=== PATIENT | male | born 1995 | race Caucasian/White ===

== ENCOUNTER 2022-08-14 16:27 | Emergency (ER) | payer BC, SELFPAY ==
[2022-08-14 16:28] VITALS: BP 123/85; PULSE 88; RESP 15; TEMP 36.4; O2SAT 96; BMI 31.3
== END 2022-08-14 17:40 | disposition left against medical advice (07) ==
LOC: ED 17:54
DX: Z53.21 Procedure and treatment not carried out due to patient leaving prior to being seen by health care provider (principal)

== ENCOUNTER 2022-08-26 20:36 | Emergency (ER) | payer MEDICAID, SELFPAY ==
[2022-08-26 20:37] VITALS: BP 146/101; PULSE 95; RESP 18; TEMP 35.7; O2SAT 96; BMI 23.6
--- NOTE | 2022-08-26 22:22 | EDS_ITS ---
HPI History of Present Illness Chief Complaint: Dental Informant: patient Onset/Context/Timing Onset: Days Context: Gradual Onset Timing: Continuous Current Severity: Moderate Maximum Severity: Moderate Relieved by: NSAIDs Associated Symptoms Assocated Symptom - Dental: cold sensitivity and hot sensitivity; Negative for fever Narrative Narrative: 26-year-old male history of bipolar. Complaining of right lower jaw dental pain for days. He has a cracked tooth is mild swelling of the gums. No fever. No trouble swallowing. He has been taking ibuprofen with limited relief. Prior similar symptoms: Yes Recent Illness/Hospitalization: No PFSH PFSH Medical History Smoker Home Medications penicillin V potassium 500 mg tablet 500 mg PO 4X/DAY #40 tabs 08/26/22 [Rx Last Taken Unknown] Allergy/AdvReac Type Severity Reaction Status Date / Time No Known Allergies Allergy Verified 08/14/22 16:28 Social History Smoking Status: Current every day smoker tobacco type: cigarettes ROS ROS ED ROS Narrative Dental pain. Otherwise no illness. Review of Systems ROS Unobtainable: Denies due to encephalopathy Constitutional Constitutional ED: Denies chills or fever(s) Eyes Eyes: Denies blurry vision ENT ENT ED: Denies ear pain Cardiovascular Cardiovascular: Denies chest pain Respiratory/Chest Respiratory/Chest: Denies cough Gastrointestinal Gastrointestinal: Denies abdominal pain Genitourinary Genitourinary ED: Denies dysuria Musculoskeletal Musculoskeletal: Denies arthralgias Integumentary Denies abscess Neurologic Neurologic: Denies headache(s) Psychiatric Psychiatric: Denies anxiety Endocrine Endocrinology: Denies cold intolerance Hematologic/Lymphatic Hematologic/Lymphatic: Denies easy bleeding Allergic/Immunologic Allergic/Immunologic ED: Reports mouth swelling; Denies tongue swelling or urticaria EXAM Physical Exam Narrative Exam Narrative: 26-year-old male seen in triage. Vital signs stable afebrile. H EENT exam very poor dentition. Multiple missing, cracked and decaying teeth. Right lower jaw molar cracked. Part of the tooth is missing. Surrounding gingivitis. No obvious abscess. Mild gum swelling. Able to open and close his mouth. No facial swelling. Posterior pharynx normal. Neck nontender no lymphadenopathy. Lungs coarse breath sounds with a few scattered wheezes. Patient smokes. Heart regular rhythm no murmur. Abdomen soft nontender. Otherwise exam unremarkable. Const Vital Signs: 08/26/22 20:37 Temperature 96.2 F L Temperature Source Temporal Pulse Rate 95 Respiratory Rate 18 Blood Pressure 146/101 H Blood Pressure Mean 116 Pulse Ox 96 Oxygen Delivery Method Room Air Positive well nourished and well developed; Negative for obese, cachectic, contractures or unkempt General Appearance ED: well developed and NAD; Negative for unkempt, cachectic, contractures or pallor Nutritional Appearance: Negative for cachectic or obese HEENT Denies other Negative for trauma, tenderness or other Face and Sinus: sinuses nontender Mouth ED: Yes lips normal, Yes tongue normal, Yes salivary gland normal and Yes oral and palatal mucosa abnormal Mouth: lips normal, tongue normal, salivary gland normal and oral and palatal mucosa abnormal Teeth and Gingiva: abnormal tooth and associated gingiva Throat: posterior oropharynx normal Eyes PERRL and EOMs intact bilaterally General Eye ED: Negative for pale conjunctiva or scleral icterus Neck no lymphadenopathy, supple and no JVD Lymph Lymphatic: no lymphadenopathy noted; Negative for lymphadenopathy Chest Wall inspection of chest normal and palpation of chest normal Resp normal respiratory effort, no retractions and clear to auscultation bilaterally Cardio regular rate, regular rhythm, S1 normal heart sound, S2 normal heart sound and no murmurs GI normal to inspection, nondistended, normoactive bowel sounds, non-tender, non- distended and no masses Inspection: Negative for other Palpation: soft Extremity normal to inspection General Extremety ED: Negative for edema General Extremity: Negative for edema Neuro oriented x3, moves all extremities and no focal motor deficits Sensorium / Orientation: alert, oriented to person, oriented to place and oriented to time Motor Exam: strength 5/5 throughout Psych mental status grossly normal Appearance: Negative for unkempt Attitude: No agitated Mood & Affect: anxious; Negative for depressed or tearful Skin no rashes or lesions noted and no wounds General Skin Exam: Negative for pallor MDM MDM MDM Narrative Medical decision making narrative: 26-year-old male complaining of right lower jaw dental pain. He has a cracked tooth with gingivitis. No drainable abscess. Tenderness to palpation. No trouble swallowing or breathing. No facial swelling. Will be placed on Pen-Vee K 500 4 times daily 10 days. Referred to a dentist. Motrin and Tylenol for pain. Given a dental block tonight. Procedures Other Procedures Procedure(s): Right lower jaw molar dental block. Discharge Plan Triage Chief Complaint: Dental ED Provider: Bismark Parra Dx/Rx/DC Orders Clinical Impression: Pain due to dental caries, Abscess, dental, Dental cavities Instructions: ED Dental Pain, ED Dental Cavity Prescriptions: New penicillin V potassium 500 mg tablet 500 mg PO 4X/DAY Qty: 40 0RF Primary Care Provider: Jj Chu Referrals: Sherley Erazo [Non-Staff] - As soon as possible [facility] Doctor,Out of [Non-Staff] - Activity Restrictions/Additional Instructions: Ice to decrease pain and swelling. Motrin for pain and swelling. Alternate with Tylenol for pain. The antibiotic penicillin 4 times a day till gone. Call and follow-up with a dentist as soon as possible. Disposition Disposition: Home, Self Care
[2022-08-26] MEDS: Bupivacaine 0.5%/Epi 1.8 ML Syringe INFILT (22:27)
[2022-08-26] MEDS: Penicillin Vk 250 MG Tablet 500 MG PO (22:27)
[2022-08-26 22:38] VITALS: BP 140/92; PULSE 90; RESP 15; O2SAT 98
== END 2022-08-26 22:39 | disposition home or self-care (01) ==
PROVIDERS: Emergency Provider Emergency Medicine; PCP Internal Medicine; Visit Provider Emergency Medicine
DX: K02.9 Dental caries, unspecified (principal); K05.10 Chronic gingivitis, plaque induced; F17.210 Nicotine dependence, cigarettes, uncomplicated; K04.7 Periapical abscess without sinus
CPT/HCPCS: 64999; 99282

== ENCOUNTER 2022-10-08 05:04 | Emergency (ER) | payer MEDICAID, SELFPAY ==
[2022-10-08 05:05] VITALS: BP 175/102; PULSE 104; RESP 20; TEMP 36.1; O2SAT 98; BMI 27.9
--- NOTE | 2022-10-08 05:24 | EX.ED.DYSGE1 ---
HPI History of Present Illness Chief Complaint: Abscess Informant: patient Narrative Narrative: Recurrent worsening right lower dental pain with jaw swelling. Seen in August for similar placed on penicillin with improvement. However follow-up with dentist yesterday due to recurring symptoms, he states started on amoxicillin and has upcoming plan extraction. He states he received a dental block and it was too painful did not want 1. He has been on 2 days amoxicillin using Tylenol and ibuprofen last dose ibuprofen prior to arrival. Denies fevers. Hot and cold sensitivities. Prior similar symptoms: Yes PFSH PFSH Medical History Kidney stones Smoker Home Medications hydrocodone-acetaminophen 5-325mg 5mg-325mg 1 tab PO Q6H PRN pain 3 days #12 tabs 10/08/22 [Rx Last Taken Unknown] penicillin V potassium 500 mg tablet 500 mg PO 4X/DAY #40 tabs 10/08/22 [Rx Last Taken Unknown] Allergy/AdvReac Type Severity Reaction Status Date / Time No Known Allergies Allergy Verified 08/14/22 16:28 Surgical History History of renal stent Social History Smoking Status: Current every day smoker tobacco type: cigarettes ROS ROS ED Constitutional Constitutional ED: Denies chills, fever(s) or sweats Eyes Eyes: Denies change in vision ENT ENT ED: Reports other Details: Right lower dental pain ; Denies dysphagia or sore throat Cardiovascular Cardiovascular: Denies chest pain, leg edema, palpitations or racing heartbeat Respiratory/Chest Respiratory/Chest: Denies cough, dyspnea or dyspnea on exertion Gastrointestinal Gastrointestinal: Denies abdominal pain, diarrhea, nausea or vomiting Genitourinary Genitourinary ED: Denies dysuria, hematuria or urinary frequency Musculoskeletal Musculoskeletal: Denies back pain, extremity pain or neck pain Integumentary Denies rash or wounds Neurologic Neurologic: Denies headache(s), paresthesias or weakness EXAM Physical Exam Const Vital Signs: 10/08/22 05:05 Temperature 97 F L Temperature Source Temporal Pulse Rate 104 H Respiratory Rate 20 H Blood Pressure 175/102 H Blood Pressure Mean 126 Pulse Ox 98 Oxygen Delivery Method Room Air Positive well nourished and well developed General Appearance ED: well developed and NAD HEENT Reports moist mucous membranes HEENT Narrative: There is cracked and decayed tooth number#30 with tenderness to percussion. There is no focal gum swelling no sublingual edema. No stridor. Slight swelling noted on right mandibular angle. normocephalic and atraumatic Eyes PERRL, EOMs intact bilaterally and conjunctivae normal General Eye ED: Yes normal appearance of both eyes Neck no lymphadenopathy and supple General: Negative for tenderness Chest Wall Chest: Negative for tenderness Resp normal respiratory effort and normal air movement Effort and Inspection: symmetric chest movement; Negative for respiratory distress Cardio regular rate, regular rhythm and no murmurs Peripheral Pulses: pulses 2+ throughout GI normal to inspection, nondistended, normoactive bowel sounds and non-tender Palpation: Negative for guarding or rebound tenderness present Back/Spine no CVA tenderness and no thoracic nor lumbar tenderness Extremity normal to inspection General Extremety ED: Negative for edema or tenderness General Extremity: Negative for edema Neuro oriented x3 and no sensory deficits noted Sensorium / Orientation: awake and alert Skin no rashes or lesions noted and no wounds MDM MDM MDM Narrative Medical decision making narrative: Patient nontoxic dental carry with tenderness tooth #30. There is jaw swelling. There is no drainable abscess on exam. He would like to switch over to penicillin from his amoxicillin due to improvement a couple months ago. He will continue Tylenol and ibuprofen. [facility] report was negative. Declined dental injection. Short course for [place] to use as needed. Follow-up with dentist for definitive treatment. All questions were answered. Discharge Plan Triage Chief Complaint: Abscess ED Provider: Joseph Gaona Dx/Rx/DC Orders Clinical Impression: Dental caries, Dentalgia Instructions: ED Dental Pain, ED Dental Cavity Prescriptions: New hydrocodone-acetaminophen 5-325 mg tablet 1 tab PO Q6H PRN (Reason: pain) 3 Days Qty: 12 0RF penicillin V potassium 500 mg tablet 500 mg PO 4X/DAY Qty: 40 0RF Discontinued penicillin V potassium 500 mg tablet 500 mg PO 4X/DAY Qty: 40 0RF Primary Care Provider: Jj Chu Referrals: Jj Chu MD [Primary Care Provider] - Activity Restrictions/Additional Instructions: Stop amoxicillin. Take penicillin as prescribed. Continue Tylenol and ibuprofen. Hydrocodone as needed. Follow-up with your dentist for definitive treatment. Disposition Disposition: Home, Self Care Discharge Date/Time: 10/08/22 05:54
== END 2022-10-08 05:54 | disposition home or self-care (01) ==
LOC: ED 05:29
PROVIDERS: Emergency Provider Emergency Medicine; PCP Internal Medicine; Visit Provider Emergency Medicine
DX: K02.9 Dental caries, unspecified (principal); K08.89 Other specified disorders of teeth and supporting structures; F17.210 Nicotine dependence, cigarettes, uncomplicated
CPT/HCPCS: 99282

== ENCOUNTER 2022-11-18 21:06 | Emergency (ER) | payer MEDICAID, SELFPAY ==
[2022-11-18 21:07] VITALS: BP 121/82; PULSE 79; RESP 15; TEMP 36.2; O2SAT 98; BMI 29.7
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
[2022-11-18] MEDS: Naproxen 500 MG Tablet PO (21:40)
--- NOTE | 2022-11-18 21:43 | RAD_ITS ---
INDICATION: Injury/low back pain EXAMINATION/TECHNIQUE: X-RAY - XR Spine Lumbar 2 or 3 Views COMPARISON: None. FINDINGS: VERTEBRAE: Preserved vertebral body height. No fracture. No spondylolisthesis. Preservation of the normal lumbar lordosis. No significant facet arthropathy. DISCS: Disc spaces are maintained. INCLUDED ABDOMEN: Included bowel gas pattern is non-obstructive. RAD/Lumbar Spine 2 or 3 Views IMPRESSION: No evidence of lumbar spinal fracture or spondylolisthesis. Electronically Signed: Robert May MD at 22:03 EST ,
== END 2022-11-18 22:04 | disposition home or self-care (01) ==
LOC: ED 21:39
PROVIDERS: Emergency Provider Emergency Medicine; PCP Internal Medicine; Visit Provider Emergency Medicine
DX: M54.50 Low back pain, unspecified (principal); F17.210 Nicotine dependence, cigarettes, uncomplicated
CPT/HCPCS: 72100; 99283

== ENCOUNTER 2023-01-04 17:32 | Emergency (ER) | payer MEDICAID, SELFPAY ==
[2023-01-04 17:33] VITALS: BP 129/65; PULSE 82; RESP 14; TEMP 36.6; O2SAT 98; BMI 25.1
--- NOTE | 2023-01-04 17:55 | EX.ED.DYSGE1 ---
HPI History of Present Illness Chief Complaint: Confusion Informant: patient Onset/Context/Timing Onset: Days Narrative Narrative: Patient present secondary to confusion and just not feeling right. He has a history of bipolar disorder and anxiety. He states he has been under a lot of stress recently. He states for the past week he feels like he is living the same day over and over. He states he does not have any emotions. His soon-to-be ex- has temporary custody of his daughter and states this is causing increased stress for him. He reports recently being on Ativan as well as another psych medicine that did not agree with him. He denies suicidal homicidal ideation. PFSH PFSH Medical History Anxiety Bipolar disorder Kidney stones Smoker Home Medications naproxen 500 mg tablet 500 mg PO BID #14 tabs 11/18/22 [Rx Last Taken Unknown] hydroxyzine HCl 25 mg tablet 25 mg PO TID PRN anxiety #14 tabs 01/04/23 [Rx Last Taken Unknown] Allergy/AdvReac Type Severity Reaction Status Date / Time No Known Allergies Allergy Verified 01/04/23 17:33 Surgical History History of renal stent Social History household members: significant other and children Smoking Status: Current every day smoker tobacco type: cigarettes substance use type: does not use ROS ROS ED Constitutional Constitutional ED: Denies chills or fever(s) Eyes Eyes: Denies change in vision or discharge from eye(s) ENT ENT ED: Reports sore throat and other Details: Recently diagnosed with strep pharyngitis and on antibiotics. ; Denies discharge from eye(s) or rhinorrhea Cardiovascular Cardiovascular: Denies chest pain or palpitations Respiratory/Chest Respiratory/Chest: Denies cough or dyspnea Gastrointestinal Gastrointestinal: Denies abdominal pain, nausea or vomiting Genitourinary Genitourinary ED: Denies dysuria Musculoskeletal Musculoskeletal: Denies back pain or extremity pain Integumentary Denies Abrasions or rash Neurologic Neurologic: Denies headache(s) or weakness Psychiatric Psychiatric: Reports anxiety and depression; Denies suicidal ideation or suicidal thoughts Allergic/Immunologic Allergic/Immunologic ED: Denies lip swelling or urticaria EXAM Physical Exam Const Vital Signs: 01/04/23 17:33 01/04/23 18:43 Temperature 98 F 97.8 F Temperature Source Temporal Pulse Rate 82 97 Respiratory Rate 14 16 Blood Pressure 129/65 H Blood Pressure Mean 86 Pulse Ox 98 100 Oxygen Delivery Method Room Air Positive well nourished and well developed General Appearance ED: well developed HEENT Reports normocephalic and head/scalp atraumatic Eyes PERRL and EOMs intact bilaterally Neck supple Chest Wall inspection of chest normal and palpation of chest normal Resp normal respiratory effort and clear to auscultation bilaterally Cardio regular rate and regular rhythm GI normal to inspection, nondistended, normoactive bowel sounds Palpation: soft Back/Spine no CVA tenderness Extremity normal to inspection Neuro oriented x3 and no sensory deficits noted Sensorium / Orientation: alert Motor Exam: strength 5/5 throughout Psych Psych Narrative: Anxious with pressured speech. Denies suicidal homicidal ideation. Skin no rashes or lesions noted MDM MDM MDM Narrative Medical decision making narrative: Blood work is obtained for psychiatric clearance. Lab Data Labs: Laboratory Results - last 24 hr 01/04/23 01/04/23 01/04/23 18:05 18:05 18:05 WBC 6.8 RBC 5.32 Hgb 16.2 Hct 47.9 MCV 90.0 MCH 30.5 MCHC 33.8 RDW Std Deviation 43.7 RDW Coeff of Parvin 13.2 Plt Count 207 MPV 10.0 Immature Gran % (Auto) 0.100 Neut % (Auto) 46.4 L Lymph % (Auto) 41.3 H [place] % (Auto) 6.9 Eos % (Auto) 4.7 Baso % (Auto) 0.6 Absolute Neuts (auto) 3.2 Absolute Lymphs (auto) 2.81 Nucleated RBC % 0 Sodium Potassium Chloride Carbon Dioxide Anion Gap BUN Creatinine Estim Creat Clear Calc Est GFR (MDRD) Af Amer Est GFR (MDRD) Non-Af BUN/Creatinine Ratio Glucose Calcium Total Bilirubin AST ALT Alkaline Phosphatase Total Protein Albumin Globulin Albumin/Globulin Ratio Urine Opiates Screen NEGATIVE Urine Methadone Screen NEGATIVE Ur Barbiturates Screen NEGATIVE Ur Phencyclidine Scrn NEGATIVE Ur Amphetamines Screen POSITIVE H MDMA (Ecstasy) Screen POSITIVE H U Benzodiazepines Scrn NEGATIVE Urine Cocaine Screen NEGATIVE U Cannabinoids Screen POSITIVE H Ur Drug Screen Comment Ethyl Alcohol < 3.0 01/04/23 18:05 WBC RBC Hgb Hct MCV MCH MCHC RDW Std Deviation RDW Coeff of Parvin Plt Count MPV Immature Gran % (Auto) Neut % (Auto) Lymph % (Auto) [place] % (Auto) Eos % (Auto) Baso % (Auto) Absolute Neuts (auto) Absolute Lymphs (auto) Nucleated RBC % Sodium 139 Potassium 3.7 Chloride 103 Carbon Dioxide 29.0 Anion Gap 7 BUN 12 Creatinine 0.82 Estim Creat Clear Calc 144.12 Est GFR (MDRD) Af Amer 145 Est GFR (MDRD) Non-Af 120 BUN/Creatinine Ratio 14.7 Glucose 97 Calcium 9.2 Total Bilirubin 0.50 AST 20 ALT 22 Alkaline Phosphatase 53 Total Protein 7.4 Albumin 3.8 Globulin 3.6 Albumin/Globulin Ratio 1.1 Urine Opiates Screen Urine Methadone Screen Ur Barbiturates Screen Ur Phencyclidine Scrn Ur Amphetamines Screen MDMA (Ecstasy) Screen U Benzodiazepines Scrn Urine Cocaine Screen U Cannabinoids Screen Ur Drug Screen Comment Ethyl Alcohol Treatment and Re-Evaluation :: CBC and chemistry studies are unremarkable. LFTs normal. Alcohol is less than 3. Tox screen is positive for cannabinoids, amphetamines, MDMA. He states that he is not taking any medications currently. He does admit to using marijuana but states he buys it from a dispensary in [place] and does not feel that it has been laced with anything. On repeat evaluation patient states that he just wants to go home and sleep. He did ask for something for anxiety but states Ativan does not help him. He again denies suicidal homicidal ideation. I will give him the phone number for the counseling center and he knows that they are available 24/ if he needs to speak with someone. He knows that he can come back here for evaluation at any time. I will give him a dose of hydroxyzine now and a prescription for short course. Discharge Plan Triage Chief Complaint: Confusion ED Provider: Birgit Hancock Dx/Rx/DC Orders Clinical Impression: Anxiety Instructions: ED Anxiety Reaction Prescriptions: New hydroxyzine HCl 25 mg tablet 25 mg PO TID PRN (Reason: anxiety) Qty: 14 0RF No Action naproxen 500 mg tablet 500 mg PO BID Qty: 14 0RF Stand Alone Forms: ED Work / School Excuse Primary Care Provider: Jj Chu Referrals: Counseling,Center [Group of Physicians] - As soon as possible Jj Chu MD [Primary Care Provider] - Disposition Disposition: Home, Self Care Discharge Date/Time: 01/04/23 18:52
[2023-01-04 18:13] LABS: Absolute Lymphocyte Count 2.81 X10^3/uL (0.83-4.51); Absolute Neutrophil Count 3.2 X10^3/uL (2.0-7.7); Basophil# 0.04 X10^3/uL; Basophil% 0.6 % (0-1); Eosinophil# 0.32 X10^3/uL; Eosinophils% 4.7 % (0-5); Hematocrit 47.9 % (40-54); Hemoglobin 16.2 g/dL (13.0-16.5); Lymphocyte # 2.81 X10^3/ul (0.83-4.51); Lymphocyte % 41.3 % (19-41); Mean Corp Hgb Conc 33.8 g/dL (32-36); Mean Corpuscular Hgb 30.5 pg (27.0-32.0); Monocyte# 0.47 X10^3/uL; Monocyte% 6.9 % (0-10); NRBC Flagged by Analyzer 0 % (0-5); Neutrophil # 3.16 X10^3/uL (2.7-7.7); Neutrophil % 46.4 % (47-70); Platelet Count 207 K/mm3 (150-450); RBC Distribution Width CV 13.2 % (11.6-14.6); RBC Distribution Width SD 43.7 fl (35.1-43.9); Red Blood Count 5.32 M/mm3 (4.6-6.2); White Blood Count 6.8 K/mm3 (4.4-11.0)
[2023-01-04 18:31] LABS: ALB/GLOB Ratio 1.1 RATIO (0.9-2.4); AST(SGOT) 20 U/L (15-37); Alanine Aminotransfer ALT/SGPT 22 U/L (16-61); Albumin, Serum 3.8 g/dL (3.2-5.0); Alkaline Phosphatase 53 U/L (45-117); Anion Gap 7 (5-15); BUN 12 mg/dL (7-18); BUN/Creat Ratio 14.7 RATIO (10-20); Calcium,Total 9.2 mg/dL (8.5-10.1); Chloride 103 mmol/L (98-107); Creatinine, Serum 0.82 mg/dL (0.70-1.30); EST Glomerular Filtration Rate 120 mL/min (>60); Est Glom Filt Rate - Afr Amer 145 mL/min (>60); Estimated Creatinine Clearance 144.12 ml/min; Globulin 3.6 g/dL (2.2-4.2); Glucose 97 mg/dL (74-106); Potassium 3.7 mmol/L (3.5-5.1); Protein, Total 7.4 g/dL (6.4-8.2); Sodium Level 139 mmol/L (136-145)
[2023-01-04 18:34] LABS: Alcohol, Blood (Medical)-Serum < 3.0 mg/dL; Amphetamine Urine VISTA POSITIVE (<1000 ng/mL); Barbiturate Urine VISTA NEGATIVE (< 200 ng/mL); Benzodiazepine Urine VISTA NEGATIVE (< 200 ng/mL); Cocaine Urine VISTA NEGATIVE (< 300 ng/mL); Ecstacy Urine VISTA POSITIVE (< 500 ng/mL); Methadone Urine VISTA NEGATIVE (< 300 ng/mL); PCP Urine VISTA NEGATIVE (< 25 ng/mL); THC Urine VISTA POSITIVE (< 50 ng/mL); Vista UDS pH Range 6
[2023-01-04 18:43] VITALS: PULSE 97; RESP 16; TEMP 36.6; O2SAT 100
[2023-01-04] MEDS: hydrOXYzine PAM 25 MG Capsule PO (18:50)
== END 2023-01-04 18:52 | disposition home or self-care (01) ==
PROVIDERS: Emergency Provider Emergency Medicine; PCP Internal Medicine; Visit Provider Emergency Medicine
DX: R41.0 Disorientation, unspecified (principal); F17.210 Nicotine dependence, cigarettes, uncomplicated; F41.9 Anxiety disorder, unspecified; Z73.9 Problem related to life management difficulty, unspecified; F32.A Depression, unspecified
CPT/HCPCS: 36415; 80053; 80307; 82077; 85025; 99283

== ENCOUNTER 2023-05-15 03:58 | Emergency (ER) | payer MEDICAID, SELFPAY ==
[2023-05-15 03:59] VITALS: BP 148/96; PULSE 120; RESP 20; TEMP 36.9; O2SAT 96; BMI 24.1
== END 2023-05-15 04:08 | disposition left against medical advice (07) ==
LOC: ED 04:20
PROVIDERS: PCP Internal Medicine
DX: Z53.21 Procedure and treatment not carried out due to patient leaving prior to being seen by health care provider (principal)
CPT/HCPCS: 99281

== ENCOUNTER 2023-05-22 18:36 | Emergency (ER) | payer MEDICAID, SELFPAY ==
[2023-05-22 18:38] VITALS: BP 189/174; PULSE 105; RESP 18; TEMP 36.7; O2SAT 98; BMI 24.5
--- NOTE | 2023-05-22 18:44 | EDS_ITS ---
HPI History of Present Illness Chief Complaint: Anxiety Detail of Chief Complaint: Anxiety reaction after argument with his mother Informant: patient Onset/Context/Timing Onset: Hours Context: Sudden Onset Timing: Continuous Quality: Anxiousness Location: Not applicable Current Severity: Mild Maximum Severity: Moderate Worsened by: Argument Relieved by: Nothing Associated Symptoms Associated Symptoms: Palpitations, shortness of breath Narrative Narrative: Patient is a 27-year-old male who presents because of anxiety reaction after argument with his mother. He states he has been out of his anxiety meds for the past 5 days. He denies headache, visual, ocular auditory symptoms. He denies chest pressure or pain. He does report mild shortness of breath. He denies dyspnea exertion, orthopnea or PND. He denies GI or symptoms. He presently denies paresthesia, anesthesia motors. He states he did have tingling in his hands shortly after argument with his mother. He does have a ride to the hospital. He states that he will be camping this coming weekend. He does admit to tobacco use and alcohol use. He also endorses use of marijuana. He states he has not used any marijuana today. Prior similar symptoms: Yes Recent Illness/Hospitalization: No PFSH PFSH Medical History Anxiety Bipolar disorder Kidney stones Smoker Home Medications naproxen 500 mg tablet 500 mg PO BID #14 tabs 11/18/22 [Rx Last Taken Unknown] hydroxyzine HCl 25 mg tablet 25 mg PO TID PRN anxiety #14 tabs 01/04/23 [Rx Last Taken Unknown] lorazepam 0.5 mg tablet (Ativan) 0.5 mg PO BID PRN anxiety #6 tabs 05/22/23 [Rx Last Taken Unknown] Allergy/AdvReac Type Severity Reaction Status Date / Time No Known Allergies Allergy Verified 05/22/23 18:39 Surgical History History of renal stent Social History (Updated 05/22/23 @ 18:[address] Edgar Awad MD) household members: significant other and children Smoking Status: Current every day smoker tobacco type: cigarettes alcohol intake: current alcohol intake frequency: 0-2 drinks per day substance use type: marijuana ROS ROS ED Constitutional Constitutional ED: Denies chills, fever(s), subjective, sweats or weight loss Eyes Eyes: Denies blurry vision, change in vision or diplopia ENT ENT ED: Denies ear pain, rhinorrhea or sore throat Cardiovascular Cardiovascular: Reports palpitations and racing heartbeat; Denies chest pain, orthopnea or paroxysmal nocturnal dyspnea Respiratory/Chest Respiratory/Chest: Denies cough, dyspnea, dyspnea on exertion, orthopnea or paroxysmal nocturnal dyspnea Gastrointestinal Gastrointestinal: Denies abdominal pain, diarrhea, nausea or vomiting Genitourinary Genitourinary ED: Denies dysuria or hematuria Musculoskeletal Musculoskeletal: Denies arthralgias, back pain or myalgias Neurologic Neurologic: Reports paresthesias; Denies headache(s) or weakness Psychiatric Psychiatric: Reports anxiety; Denies depression or suicidal ideation EXAM Physical Exam Const Vital Signs: 05/22/23 18:38 Temperature 98.1 F Temperature Source Temporal Pulse Rate 105 H Respiratory Rate 18 Blood Pressure 189/174 H Blood Pressure Mean 179 Pulse Ox 98 Oxygen Delivery Method Room Air Positive well nourished, well developed and unkempt General Appearance ED: unkempt, well developed and NAD; Negative for cyanotic, diaphoretic or pallor HEENT Reports moist mucous membranes HEENT Narrative: Head is atraumatic normocephalic. Ears normal. Nares patent. Poor dentition. Eyes PERRL and EOMs intact bilaterally General Eye ED: Negative for pale conjunctiva or scleral icterus Neck no lymphadenopathy, supple and no JVD Resp normal respiratory effort and clear to auscultation bilaterally Cardio regular rhythm, S1 normal heart sound, S2 normal heart sound and no murmurs Rate: tachycardic GI normal to inspection, nondistended, normoactive bowel sounds, non-tender, non- distended and no masses; Negative for hepatosplenomegaly Back/Spine no CVA tenderness Extremity normal to inspection General Extremety ED: Negative for edema or tenderness General Extremity: Negative for edema Neuro oriented x3, CN's II-XII intact bilaterally and no sensory deficits noted Sensorium / Orientation: alert Motor Exam: strength 5/5 throughout Psych Appearance: unkempt Mood & Affect: anxious Skin no rashes or lesions noted General Skin Exam: Negative for jaundice or pallor MDM MDM History & Record Review Additional record(s) reviewed:: Prior ED visit (Related to back pain and dental issues.) Treatment and Re-Evaluation :: Patient was given prescription for 3-day duration of Ativan. Instructed follow- up with his doctor. Discharge Plan Triage Chief Complaint: Anxiety ED Provider: Edgar Awad Dx/Rx/DC Orders Clinical Impression: Marijuana use, Anxiety reaction, Tobacco use Instructions: ED Anxiety Reaction Prescriptions: New lorazepam [Ativan] 0.5 mg tablet 0.5 mg PO BID PRN (Reason: anxiety) Qty: 6 0RF No Action naproxen 500 mg tablet 500 mg PO BID Qty: 14 0RF hydroxyzine HCl 25 mg tablet 25 mg PO TID PRN (Reason: anxiety) Qty: 14 0RF Primary Care Provider: Jj Chu Referrals: Jj Chu MD [Primary Care Provider] - 3-5 Days Disposition Disposition: Home, Self Care
[2023-05-22 18:58] VITALS: RESP 18
--- NOTE | 2023-05-22 19:36 | CM.ED ---
Social Work Referral Source: JARED Mehta Referral Reason: resources JARED Mehta informed SW patient states he has no where to go and is unable to go to [facility], to follow up with resources. LIS met with patient and introduced self and role as [facility] Outreach Specialist. Patient seated on hospital bed and agreeable to talk with SW. SW inquired about recent events and patients ability to go home. Patient recalled argument with his egg donor regarding his brother and does not feel he can return to her home. Patient reports recently being released from psychiatric hospital but explained he is not currently experiencing SI/HI. Patient inquired about his ability to remain in the hospital or be put in a hotel for the night. SW explained patient can not remain in ED unless there is a medical need and [facility] does not purchase hotel rooms for patients. SW reviewed [facility] resource list and list of homeless shelters in and near [facility]. Patient reports he is unable to go due to being a registered sex offender. Patient then inquired about his ability to return to his egg donors home or have the officer that brought him in take him home. SW to inquire, patient waiting in waiting area. LIS spoke with CAROL Mccoy who reports the officer that brought him in is unable to assist with taking him home, however from a legal standpoint patient can return to the house he was previously at. LIS met with patient and reviewed conversation with HRO. Patient reports understanding and explained he can stay with his cousin in [place]. SW informed patient his insurance has transportation benefit and encouraged him to contact them. Patient then inquired about returning to his egg donors home and inquired if SW could contact Juan R MERIDA to get her phone number. SW explained that was not an option and encouraged him to contact his cousin or insurance for a ride. Patient reports he is going to [place] and will figure it out from there or might be back under different circumstances and departed from ED. Ciera Muhammad MSW ,BRISA
== END 2023-05-22 19:01 | disposition home or self-care (01) ==
LOC: ED 18:58
PROVIDERS: Emergency Provider Emergency Medicine; PCP Internal Medicine; Visit Provider Emergency Medicine
DX: F41.1 Generalized anxiety disorder (principal); F17.210 Nicotine dependence, cigarettes, uncomplicated; F12.90 Cannabis use, unspecified, uncomplicated; Z63.8 Other specified problems related to primary support group
CPT/HCPCS: 99282

== ENCOUNTER 2023-06-02 10:26 | Emergency (ER) | payer MEDICAID, SELFPAY ==
[2023-06-02 10:28] VITALS: BP 135/93; PULSE 98; RESP 22; TEMP 36; O2SAT 97
== END 2023-06-02 10:55 | disposition left against medical advice (07) ==
LOC: ED 10:55
PROVIDERS: PCP Internal Medicine
DX: Z53.21 Procedure and treatment not carried out due to patient leaving prior to being seen by health care provider (principal)
CPT/HCPCS: 99282